=== PATIENT | female | born 1985 | race Caucasian/White ===

== ENCOUNTER 2023-12-23 13:03 | Emergency (ER) | payer MEDICAID, SELFPAY ==
--- NOTE | 2023-12-23 13:09 | ECG_ITS ---
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 Measurements Intervals [place] Rate: 108 P: 74 [place]: 152 QRS: 69 QRSD: 87 T: 62 QT: 325 QTc: 436 Interpretive Statements SINUS TACHYCARDIA LOW QRS VOLTAGE IN PRECORDIAL LEADS [QRS DEFLECTION < 1.0 mV IN CHEST LEADS] ABNORMAL RHYTHM ECG Compared to ECG 03/08/2018 08:17:43 Low QRS voltage now present Sinus rhythm no longer present T-wave abnormality no longer present Electronically Signed On 12-23-2023 21:03:38 CDT by Elen Whiteside M.D. [id number]
[2023-12-23 13:16] VITALS: BP 131/98; PULSE 102; RESP 16; TEMP 36.7; O2SAT 97; BMI 40.8
--- NOTE | 2023-12-23 13:28 | XRR_ITS ---
PROCEDURE INFORMATION: Exam: XR Chest Exam date and time: 12/23/2023 2:01 PM Age: 38 years old Clinical indication: Pain; Chest pressure; Additional info: Cp TECHNIQUE: Imaging protocol: Radiologic exam of the chest. Views: 1 view. COMPARISON: No relevant prior studies available. FINDINGS: Lungs: Unremarkable. No consolidation. Pleural spaces: Unremarkable. No pleural effusion. No pneumothorax. Heart/Mediastinum: Unremarkable. No cardiomegaly. Bones/joints: Unremarkable. XR/XR chest 1V portable [id number] IMPRESSION: No acute findings.
[2023-12-23 13:50] LABS: Basophils % 0.4 %; Eosinophils # 0.2 10^3/uL (0.0-0.8); Eosinophils % 1.6 %; Lymphocytes # 2.3 10^3/uL (0.8-4.8); Lymphocytes % 23.4 %; Mean Corpuscular HGB Conc 34.1 g/dL (30-55); Mean Corpuscular Hemoglobin 30.3 pg (27-33); Mean Corpuscular Volume 88.8 fl (85-98); Mean Platelet Volume 9.9 fL (7.4-10.4); Monocytes # 0.5 10^3/uL (0.2-0.9); Monocytes % 5.3 %; Nucleated Red Blood Cells % 0 %; Platelet Count 308 10^3/cmm (157-399); Red Blood Count 5.18 10^6/uL (3.85-5.65); Red Cell Distribution Width 12.3 % (12.1-15.1); White Blood Count 9.73 10^3/uL (3.29-11.43)
[2023-12-23 14:11] LABS: Troponin(5th) Baseline < 6 ng/L (0-10)
[2023-12-23 14:16] LABS: Alanine Aminotransferase 17 U/L (0-33); Albumin Level 4.5 g/dL (3.5-5.2); Alkaline Phosphatase 137 U/L (35-105); Anion Gap 15.3 (5-19); Aspartate Amino Transferase 22 U/L (0-32); Blood Urea Nitrogen 12 mg/dL (6-20); Calcium 9.8 mg/dL (8.5-10.5); Carbon Dioxide 26 mmol/L (22-29); Chloride 99 mmol/L (98-107); Creatinine Clr Calc Pharmacy 97.1579; Globulin 2.9 g/dL (1.3-4.6); Glomerular Filtration Rate 61.7 mL/min (90-130); Glucose 96 mg/dL (65-115); Lipase 10 U/L (13-60); Osmolality Calculated 282 mOsm/kg (285-295); Potassium 4.3 mmol/L (3.5-5.1); Sodium 136 mmol/L (136-145); Total Bilirubin 0.4 mg/dL (0.15-1.2); Total Protein 7.4 g/dL (6.6-8.7)
[2023-12-23 16:29] LABS: Troponin 5 2HR Delta 0.00001 ABS# (0-10)
--- NOTE | 2023-12-23 16:59 | ED_ITS ---
HPI - Chest Pain 2 General: Chief Complaint: Chest Pain Stated Complaint: chest pain Time Seen by Provider: 12/23/23 16:16 History of Present Illness: 38-year-old female presents emergency de partment with intermittent chest pain for the last few days. She reports the location in the substernal region. She reports no association with exertion, times a day, eating, breathing, moving. When it happens it usually last for a few hours. When it is occurring she does not have any aggravating or alleviating symptoms. No associated lightheadedness, coughing, fever, palpitations or other symptoms. She does report that she has been on opiate therapy for a very long time and she is tapering down. She is not sure if that is related. She is not experiencing any heartburn or GI symptoms. No history of cardiopulmonary disease. She does vape. She has a history of mildly elevated cholesterol and blood pressure but it is very well-controlled with medication. No first-degree family members with heart disease. No recent illnesses. No extremity pain or swelling. No history of DVT or PE. No hemoptysis. Associated symptoms: Deny abdominal pain, dyspnea, fever(s), nausea, syncope or vomiting Related Data Allergies Allergy/AdvReac Type Severity Reaction Status Date / Time No Known Allergies Allergy Verified 12/23/23 13:18 Review of Systems 2 General: Reports: 10 or more systems reviewed and unremarkable except in HPI and below Const: Denies: fever(s), chills or body aches Eyes: Denies: change in vision ENMT: Denies: throat pain Card: Denies: edema or syncope Resp: Denies: dyspnea or productive cough GI: Denies: abdominal pain, nausea, vomiting or diarrhea : Denies: flank pain, dysuria or urinary frequency Musc: Denies: neck pain, back pain, extremity pain or extremity swelling Skin/Breast: Denies: rash or erythema Neuro: Denies: headache(s), numbness in extremities, weakness in extremities, lack of coordination or difficulty walking Physical Exam 2 Narrative: EXAM NARRATIVE: This is an anxious 38-year-old female with nonspecific chest pain. She is well- appearing, obese, worried, at times tearful. Const: COMMON NORMALS: no limitations, alert and well nourished EXAM LIMITATIONS: no altered mental status HENMT: COMMON NORMALS: normocephalic, atraumatic and external ears normal H EAD & SCALP: normocephalic and atraumatic EXTERNAL EAR: Yes external ears normal MOUTH: no muffled voice Eye: COMMON NORMALS: EOMs intact bilaterally, conjunctivae normal and no scleral icterus CONJUNCTIVA: Yes conjunctivae normal Neck/C-Spine: COMMON NORMALS: no JVD GENERAL: Yes normal visual inspection and Yes trachea midline Resp: COMMON NORMALS: normal respiratory effort, No use of accessory muscles and clear to auscultation bilaterally AUSCULTATION: clear to auscultation bilaterally Cardio: COMMON NORMALS: no JVD, regular rate and regular rhythm RATE: r egular rate RHYTHM: regular rhythm GI: COMMON NORMALS: Soft to palpation and non-tender PALPATION: Yes Soft to palpation and No Guarding due to palpation present (GI) Extremity: COMMON NORMALS: normal to inspection Neuro: COMMON NORMALS: moves all extremities, no focal motor deficits and no sensory deficits noted SENSORIUM/ORIENTATION: Yes alert SPEECH: speech normal Psych: COMMON NORMALS: mental status grossly normal, Normal thought process present, cooperative and speech normal SPEECH: Yes normal speech THOUGHT PROCESS: Normal thought process present Skin: COMMON NORMALS: no rashes or lesions noted, turgor normal and no jaundice GENERAL SKIN EXAM: no rashes or lesions noted and turgor normal Course 2 Vital Signs: Vital signs: Vital Signs Temperature 98.1 F 12/23/23 13:16 Pulse Rate 102 H 12/23/23 13:16 Respiratory Rate 16 12/23/23 13:16 Blood Pressure 131/98 12/23/23 13:16 Pulse Oximetry 97 12/23/23 13:16 Oxygen Delivery Me thod Room Air 12/23/23 13:16 MDM - Chest Pain Medical Decision Making 38-year-old female with nonspecific chest pain. It sounds atypical based on history. Her EKG on my interpretation shows a sinus tachycardia on arrival without ischemic changes. On my examination she has calm down and her heart rate is in the 80s and 90s. The patient is intermittently very anxious. She at times becomes tearful. She is tapering down her opiates. She reports she does have PTSD. Troponin less than 6. Chest x-ray my interpretation with no cardiomediastinal abnormalities, no pneumothorax or effusions. The remainder of her laboratory workup has been pretty unremarkable. Her calculated heart score is low risk for ACS in the next 6 weeks. Patient may be discharged to outpatient follow-up. Advised if she continues to have chest pain she should next do a ambulatory telemetry monitor and stress test. Do not suspect PE. Lab Data 12/23/23 13:44 12/23/23 13:44 Radiology Impressions Chest X-Ray 12/23/23 13:28 IMPRESSION: No acute findings. Laboratory Results WBC 9.73 10^3/uL (3.29-11.43) 12/23/23 13:44 RBC 5.18 10^6/uL (3.85-5.65) 12/23/23 13:44 Hgb 15.70 g/dL (11.27-16.99) 12/23/23 13:44 Hct 46.0 % (36-47) 12/23/23 13:44 MCV 88.8 fl (85-98) 12/23/23 13:44 MCH 30.3 pg (27-33) 12/23/23 13:44 MCHC 34.1 g/dL (30-55) 12/23/23 13:44 RDW 12.3 % (12.1-15.1) 12/23/23 13:44 Plt Count 308 10^3/cmm (157-399) 12/23/23 13:44 MPV 9.9 fL (7.4-10.4) 12/23/23 13:44 Neut % (Auto) 69.0 % 12/23/23 13:44 Lymph % (Auto) 23.4 % 12/23/23 13:44 [place] % (Auto) 5.3 % 12/23/23 13:44 Eos % (Auto) 1.6 % 12/23/23 13:44 Baso % (Auto) 0.4 % 12/23/23 13:44 Neut # (Auto) 6.70 10^3/uL (1.8-7.7) 12/23/23 13:44 Lymph # (Auto) 2.3 10^3/uL (0.8-4.8) 12/23/23 13:44 [place] # (Auto) 0.5 10^3/uL (0.2-0.9) 12/23/23 13:44 Eos # (Auto) 0.2 10^3/uL (0.0-0.8) 12/23/23 13:44 Baso # (Auto) 0.0 10^3/uL (0.0-0.1) 12/23/23 13:44 Nucleated RBC % (auto) 0 % 12/23/23 13:44 Nucleated RBCs # 0.0 /100WBC 12/23/23 13:44 Sodium 136 mmol/L (136-145) 12/23/23 13:44 Potassium 4.3 mmol/L (3.5-5.1) 12/23/23 13:44 Chloride 99 mmol/L (98-107) 12/23/23 13:44 Carbon Dioxide 26 mmol/L (22-29) 12/23/23 13:44 Anion Gap 15.3 (5-19) 12/23/23 13:44 BUN 12 mg/dL (6-20) 12/23/23 13:44 Creatinine 1.0 mg/dL (0.5-0.9) H 12/23/23 13:44 GFR Calculation 61.7 mL/min (90-130) L 12/23/23 13:44 Glucose 96 mg/dL (65-115) 12/23/23 13:44 Calculated Osmolality 282 mOsm/kg (285-295) L 12/23/23 13:44 Calcium 9.8 mg/dL (8.5-10.5) 12/23/23 13:44 Total Bilirubin 0.4 mg/dL (0.15-1.2) 12/23/23 13:44 AST 22 U/L (0-32) 12/23/23 13:44 ALT 17 U/L (0-33) 12/23/23 13:44 Alkaline Phosphatase 137 U/L (35-105) H 12/23/23 13:44 Troponin T Baseline < 6 ng/L (0-10) 12/23/23 13:44 Troponin T 120 Minute 6.00 ng/L (0-10) 12/23/23 16:01 Delta Troponin T 0.10699 ABS# (0-10) 12/23/23 16:01 Total Protein 7.4 g/dL (6.6-8.7) 12/23/23 13:44 Albumin 4.5 g/dL (3.5-5.2) 12/23/23 13:44 Globulin 2.9 g/dL (1.3-4.6) 12/23/23 13:44 Lipase 10 U/L (13-60) L 12/23/23 13:44 All radiology interpretation(s) finalized by discharge ED provider radiology interpretation(s): Chest x-ray 1 view. EP interpretation. No acute findings. Discharge Plan Discharge Patient Disposition: Home Clinical Impression: Acute nonspecific chest pain with low risk of coronary artery disease Condition: Stable Discharge Orders: Discharge ED (Routine); Ordered 12/23/23 Ordered By: Latrell Haskins Patient Instructions: Chest Pain (ED), Opioid Safety, Pain Management Activity Restrictions/Additional Instructions: Please follow-up with primary care. If you continue to have chest discomfort, you may need an ambulatory telemetry monitor and stress testing. Read the handout labeled chest pain . If you have any of the return precautions please abide by them and return to the ER. You did not have any signs of heart attack or heart failure today. Coding Level of Care Code ED Homeowner Association Manager for Ronnie Figueroa
[2023-12-23 17:07] VITALS: BP 140/112; PULSE 80; O2SAT 94
== END 2023-12-23 17:08 | disposition home or self-care (01) ==
PROVIDERS: Nurse Practitioner; Emergency Provider Emergency Medicine
DX: R07.9 Chest pain, unspecified (principal)
CPT/HCPCS: 36415; 71045; 80053; 83690; 84484; 85025; 93005; 99285